=== PATIENT | male | born 1990 | race Two or more races ===

== ENCOUNTER 2017-12-28 08:30 | Emergency (ER) | payer OTHER ==
[~2017-12-28] VITALS: Ht 177.8 cm; Wt 96.0 kg
[2017-12-28] MEDS ORDERED: LIDOcaine 1.5% w/epinephrine 1:200,000 5ml ampul IJ ONE (08:45)
[2017-12-28] MEDS ORDERED: HYDROcodone/acetaminophen 10/325mg tab PO ONE (08:45)
[2017-12-28] MEDS ORDERED: TETanus/Pertussis (Acell)/Diphther VAC/PF (Tdap-Adult) 0.5ml syringe IM ONE (08:45)
[2017-12-28] MEDS ORDERED: proparacaine 0.5% ophthalmic drops 15ml LEFTEYE ONE (10:10)
[2017-12-28] MEDS ORDERED: AMOX-422 PO (10:52)
[2017-12-28] MEDS ORDERED: HYDR-3965 PO (11:08)
[2017-12-28 11:14] VITALS: BP 114/72
== END 2017-12-28 11:16 | disposition home or self-care (01) ==
LOC: ER 08:30
DX: S02.19XA Other fracture of base of skull, initial encounter for closed fracture (principal); S01.112A Laceration without foreign body of left eyelid and periocular area, initial encounter; Z79.2 Long term (current) use of antibiotics; W22.8XXA Striking against or struck by other objects, initial encounter; Y93.89 Activity, other specified; Y92.89 Other specified places as the place of occurrence of the external cause; Y99.8 Other external cause status
CPT/HCPCS: 12013; 70486; 99284; J3490